=== PATIENT | female | born 1990 | race Caucasian/White ===

== ENCOUNTER 2020-06-12 08:29 | Day surgery (SDC) | payer BC ==
[~2020-06-12 08:29] MED LIST: Lactated Ringers 1,000 ML IV SCH; Lidocaine 2% 5 ML SDV ONE; Midazolam 1 MG/ML 2 ML SDV ONE; Propofol 200 MG/20 ML SDV ONE; Sodium Chloride 0.9% 10 ML SDV IV PRN; Sodium Chloride 0.9% 10 ML Syringe FLUSH PRN; Sodium Chloride 0.9% 2.5 ML Syringe FLUSH PRN; fentaNYL 100 MCG/2 ML SDV ONE
--- NOTE | 2020-06-12 09:14 | PCM.PREANE ---
Preanesthetic Assessment - Anesthesia/Transfusion/Family Hx Anesthesia History: Prior Anesthesia Without Reaction Family History of Anesthesia Reaction: No Transfusion History: No Prior Transfusion(s) - Review of Systems General: No Symptoms Pulmonary: No Symptoms Cardiovascular: No Symptoms Gastrointestinal: No Symptoms Neurological: No Symptoms Other: Reports: None - Physical Assessment NPO Status Date: 06/12/20 NPO Status Time: 00:01 Vital Signs: Last Vital Signs Temp 97.3 F 06/12/20 09:00 Pulse 65 06/12/20 09:00 Resp 16 06/12/20 09:00 BP 122/77 06/12/20 09:00 Pulse Ox 97 06/12/20 09:00 Height: 5 ft 1 in Weight: 155 lb ASA Class: 2 Mental Status: Alert & Oriented x3 Airway Class: Mallampati = 2 Dentition: Reports: Normal Dentition ROM/Head Extension: Full Lungs: Clear to Auscultation, Normal Respiratory Effort Cardiovascular: Regular Rate, Regular Rhythm - Lab Values: Laboratory Last Values Urine HCG, Qual NEGATIVE (NEGATIVE) 06/12/20 08:42 - Allergies Allergies/Adverse Reactions: Allergies Allergy/AdvReac Type Severity Reaction Status Date / Time amoxicillin Allergy thrush Verified 06/12/20 08:55 - Anesthesia Plan Pre-Op Medication Ordered: None - Acknowledgements Anesthesia Type Planned: General Anesthesia Pt an Appropriate Candidate for the Planned Anesthesia: Yes Alternatives and Risks of Anesthesia Discussed w Pt/Guardian: Yes Pt/Guardian Understands and Agrees with Anesthesia Plan: Yes Additional Comments: npo hayfever depression no cv problems par no questions PreAnesthesia Questionnaire HEENT History: Reports: Other (See Below) Other HEENT History: hx fx jaw Cardiovascular History: Reports: None Respiratory History: Reports: None Gastrointestinal History: Reports: Irritable Bowel Syndrome, Other (See Below) Other Gastrointestinal History: intermittent abd pain Genitourinary History: Reports: None Musculoskeletal History: Reports: Fracture Other Musculoskeletal History: hx fx tailbone & fx jaw Neurological History: Reports: None Psychiatric History: Reports: Anxiety, Depression Endocrine/Metabolic History: Reports: None Hematologic History: Reports: None Immunologic History: Reports: None Oncologic (Cancer) History: Reports: None Dermatologic History: Reports: None - Past Surgical History Head Surgeries/Procedures: Reports: None HEENT Surgical History: Reports: Oral Surgery Other HEENT Surgeries/Procedures: wisdom teeth extraction Cardiovascular Surgical History: Reports: None Respiratory Surgical History: Reports: None GI Surgical History: Reports: None Female Surgical History: Reports: None Endocrine Surgical History: Reports: None Neurological Surgical History: Reports: None Musculoskeletal Surgical History: Reports: None Oncologic Surgical History: Reports: None Dermatological Surgical History: Reports: None - SUBSTANCE USE Tobacco Use Status *Q: Current Every Day Tobacco User Tobacco Use Within Last Twelve Months: Cigarettes - HOME MEDS Home Medications: Home Meds Acetaminophen [Tylenol Extra Strength] 1 - 2 tab PO ASDIRECTED PRN 06/06/20 [History] Cetirizine HCl/Pseudoephedrine [ZyrTEC-D] 1 tab PO ASDIRECTED PRN 06/06/20 [History] Ibuprofen 2 tab PO ASDIRECTED PRN 06/06/20 [History] Levonorgestrel/Ethin.estradiol [Falmina-28 Tablet] 1 tab PO DAILY 06/06/20 [History] Multivitamin 1 tab PO DAILY 06/06/20 [History] Sertraline HCl 25 mg PO DAILY 06/06/20 [History] - CURRENT (IN HOUSE) MEDS Current Meds: Current Medications Lactated Ringer's (Ringers, Lactated) 1,000 mls @ 125 mls/hr IV ASDIRECTED NIKKI Last Admin: 06/12/20 08:54 Dose: 125 mls/hr Documented by: Sodium Chloride (Sodium Chloride 0.9% 10 Ml Syringe) 10 ml FLUSH ASDIRECTED PRN PRN Reason: Keep Vein Open Sodium Chloride (Sodium Chloride 0.9% 2.5 Ml Syringe) 2.5 ml FLUSH ASDIRECTED PRN PRN Reason: Keep Vein Open Sodium Chloride (Sodium Chloride 0.9% 10 Ml Syringe) 10 ml FLUSH ASDIRECTED PRN PRN Reason: Keep Vein Open Sodium Chloride (Sodium Chloride 0.9% 2.5 Ml Syringe) 2.5 ml FLUSH ASDIRECTED PRN PRN Reason: Keep Vein Open Sodium Chloride (Sodium Chloride 0.9% 10 Ml Sdv) 10 ml IV ASDIRECTED PRN PRN Reason: IV Use Discontinued Medications Fentanyl (Fentanyl 100 Mcg/2 Ml Sdv) Confirm Administered Dose 100 mcg .ROUTE .STK-MED ONE Stop: 06/12/20 06:57 Lidocaine (Lidocaine 2% 5 Ml Sdv) Confirm Administered Dose 5 ml .ROUTE .STK-MED ONE Stop: 06/12/20 06:58 Midazolam HCl (Midazolam 1 Mg/Ml 2 Ml Sdv) Confirm Administered Dose 2 mg .ROUTE .STK-MED ONE Stop: 06/12/20 06:57 Propofol (Propofol 200 Mg/20 Ml Sdv) Confirm Administered Dose 400 mg .ROUTE .S TK-MED ONE Stop: 06/12/20 06:57
--- NOTE | 2020-06-12 10:11 | PCM.OPNOTE ---
- General Post-Op/Procedure Note Date of Surgery/Procedure: 06/12/20 Operative Procedure(s): Diagnostic EGD and colonoscopy Findings: Normal appearing EGD and colonoscopy. Pre Op Diagnosis: Abdominal pain Post-Op Diagnosis: Abdominal pain, biliary dyskinesia Anesthesia Technique: ELIZABETH Primary Surgeon: Skyla Rain Condition: Good
--- NOTE | 2020-06-12 10:25 | PCM.POSTAN ---
POST ANESTHESIA ASSESSMENT - MENTAL STATUS Mental Status: Alert (no anesthetic problems), Oriented - VITAL SIGNS Vital Signs: Last Vital Signs Temp 97.3 F 06/12/20 09:00 Pulse 62 06/12/20 10:19 Resp 13 06/12/20 10:19 BP 110/70 06/12/20 10:19 Pulse Ox 99 06/12/20 10:19 - RESPIRATORY Respiratory Status: Respiratory Rate WNL, Airway Patent, O2 Saturation Stable - CARDIOVASCULAR CV Status: Pulse Rate WNL, Blood Pressure Stable - GASTROINTESTINAL GI Status: No Symptoms - POST OP HYDRATION Hydration Status: Adequate & Stable
--- NOTE | 2020-06-12 10:44 | PCM48HPAN ---
Post Anesthesia Note - EVALUATION WITHIN 48HRS OF ANESTHETIC Vital Signs in Normal Range: Yes Patient Participated in Evaluation: Yes Respiratory Function Stable: Yes Airway Patent: Yes Cardiovascular Function Stable: Yes Hydration Status Stable: Yes Pain Control Satisfactory: Yes Nausea and Vomiting Control Satisfactory: Yes Mental Status Recovered: Yes Vital Signs: Last Vital Signs Temp 36.3 C 06/12/20 09:00 Pulse 62 06/12/20 10:19 Resp 13 06/12/20 10:19 BP 110/70 06/12/20 10:19 Pulse Ox 99 06/12/20 10:19
--- NOTE | 2020-06-12 11:04 | PCM48HPAN ---
Post Anesthesia Note - EVALUATION WITHIN 48HRS OF ANESTHETIC Vital Signs in Normal Range: Yes Patient Participated in Evaluation: Yes Respiratory Function Stable: Yes Airway Patent: Yes Cardiovascular Function Stable: Yes Hydration Status Stable: Yes Pain Control Satisfactory: Yes Nausea and Vomiting Control Satisfactory: Yes Mental Status Recovered: Yes Vital Signs: Last Vital Signs Temp 97.3 F 06/12/20 09:00 Pulse 62 06/12/20 10:19 Resp 13 06/12/20 10:19 BP 110/70 06/12/20 10:19 Pulse Ox 99 06/12/20 10:19
--- NOTE | 2020-06-13 19:05 | OR ---
SURGEON: SKYLA RAIN MD DATE OF PROCEDURE: 06/12/2020 PREOPERATIVE DIAGNOSIS: Generalized abdominal pain. POSTOPERATIVE DIAGNOSES: 1. Abdominal pain. 2. Biliary dyskinesia. PROCEDURE PERFORMED: Diagnostic esophagogastroduodenoscopy and colonoscopy. PRIMARY SURGEON: Skyla Rain MD ANESTHESIA: MAC. INSTRUMENT USED: Olympus endoscope and colonoscope. EXTENT OF EXAM: To the second portion of duodenum, to the cecum. PREPARATION: Good. LIMITATIONS: None. INDICATIONS FOR EXAMINATION: The patient is a 29-year-old female who presented with abdominal pain. She had a HIDA test performed, which showed decreased ejection fraction of the gallbladder; however, it did not reproduce all of her symptoms. The decision was made to proceed with diagnostic EGD and colonoscopy to rule out a GI source for pain prior to performing a cholecystectomy. The patient and I discussed the procedures, expected perioperative course, and risks. She verbalized understanding and wishes to proceed. PROCEDURE IN DETAIL: The patient was brought into the endoscopy suite and placed in the left lateral decubitus position. A time-out was completed verifying the patient's name, age, date of , allergies, and procedure to be performed. Monitored anesthesia care was induced and continuous oxygen was provided via nasal cannula throughout the procedure. A bite block was placed in the patient's mouth. After adequate sedation was achieved, a well-lubricated endoscope was placed in the patient's mouth and advanced under direct visualization to the second portion of duodenum. This appeared normal, and a photograph was taken. The scope was then fully withdrawn while examining the color, texture, anatomy, and integrity of the mucosa of the upper GI tract. The duodenum, stomach, and esophagus all appeared normal. There was no evidence of gross inflammation or ulceration. Everything appeared anatomically normal. A photograph was taken of the second portion of duodenum, of the pylorus, and of the GE junction both with the scope retroflexed within the stomach as well as with the scope in the distal esophagus. Biopsies were taken of the gastric antrum, body, and fundus and sent for histologic review and H. pylori testing. Biopsies were also taken in the first portion of duodenum as well as in the distal esophagus 1 cm above the Z-line and sent to Pathology for histologic review. The scope was removed, and this portion of procedure terminated. A digital rectal exam was performed. This exam was within normal limits. A well-lubricated colonoscope was inserted in the rectum and advanced under direct visualization to the cecum. The cecum was identified by both visual and anatomic landmarks. A photograph taken of the cecal cap as well as with the scope retroflexed within the cecum. The scope was then fully withdrawn while examining the color, texture, anatomy, and integrity of the mucosa from the cecum to the anal canal. The terminal ileum appeared normal. There was no evidence of any gross ulceration or inflammation throughout the colon. No other pathology was identified. Biopsies were taken of the cecum, ascending colon, transverse colon, descending colon, sigmoid colon, and rectum and sent to Pathology for histologic review. The scope was retroflexed within the rectum to allow visualization of the anal canal opening. This appeared normal, and a photograph was taken. The scope was then straightened out and fully withdrawn. Cecum to anus time was 7 minutes. The patient tolerated the procedure well and transferred to the PACU in stable condition. ENDOSCOPIC DIAGNOSIS: Abdominal pain, most likely due to biliary dyskinesia. RECOMMENDATIONS: The patient and I have visited in clinic the day before. I will follow up on the results of the biopsies from today's exams. If these are normal or show very minimal change then likely her pain is due to biliary dyskinesia, and we will schedule her for a laparoscopic, possible open cholecystectomy. REBKEAH JEFFERS /[id number]
== END 2020-06-12 10:52 | disposition home or self-care (01) ==
LOC: MW.SDS 08:29
PROVIDERS: ATTEND Surgery
DX: R10.84 Generalized abdominal pain (principal); R19.4 Change in bowel habit; K31.89 Other diseases of stomach and duodenum; K22.8 Other specified diseases of esophagus; K63.89 Other specified diseases of intestine; F17.210 Nicotine dependence, cigarettes, uncomplicated; Z79.899 Other long term (current) drug therapy; Z88.1 Allergy status to other antibiotic agents
CPT/HCPCS: 43239; 45380; 81025; 88305; 88312; J2250; J2704; J3010; J7120; 00813

== ENCOUNTER 2020-06-26 10:52 | Day surgery (SDC) | payer BC ==
[~2020-06-26 10:52] MED LIST changes: +Bupivacaine 0.5% 30 ML SDV ONE; +Dexamethasone 4 MG/ML 5 ML MDV ONE; +HYDROmorphone 2 MG/ML Syringe ONE; +Ketamine 500 mg/10 ML MDV ONE; +Ketorolac 30 MG/ML SDV ONE; +Octyl 2-Cyanoacrylate 1 Tube ONE; +Ondansetron 4 MG/2 ML SDV ONE; -Propofol 200 MG/20 ML SDV ONE; +Rocuronium Bromide 50 MG/5 ML Syringe ONE; +Sugammadex Sodium 200 MG/2 ML VIAL ONE; +ceFAZolin 2 GM in Premix Bag 1 BAG IV ONE; +propofoL 100 ML ONE
--- NOTE | 2020-06-26 11:21 | PCM.PREANE ---
Preanesthetic Assessment - Anesthesia/Transfusion/Family Hx Anesthesia History: Prior Anesthesia Without Reaction Family History of Anesthesia Reaction: No Transfusion History: No Prior Transfusion(s) - Review of Systems General: No Symptoms Pulmonary: No Symptoms Cardiovascular: No Symptoms Gastrointestinal: No Symptoms Neurological: No Symptoms Other: Reports: None - Physical Assessment NPO Status Date: 06/26/20 NPO Status Time: 00:01 Height: 5 ft 1 in Weight: 155 lb ASA Class: 2 Mental Status: Alert & Oriented x3 Airway Class: Mallampati = 2 Dentition: Reports: Normal Dentition ROM/Head Extension: Full Lungs: Clear to Auscultation, Normal Respiratory Effort Cardiovascular: Regular Rate, Regular Rhythm - Allergies Allergies/Adverse Reactions: Allergies Allergy/AdvReac Type Severity Reaction Status Date / Time amoxicillin Allergy thrush Verified 06/20/20 09:02 - Acknowledgements Anesthesia Type Planned: General Anesthesia Pt an Appropriate Candidate for the Planned Anesthesia: Yes Alternatives and Risks of Anesthesia Discussed w Pt/Guardian: Yes Pt/Guardian Understands and Agrees with Anesthesia Plan: Yes Additional Comments: npo after mn hayfever depression anxiety headaches tob 1/2 ppd etoh occ par no questions PreAnesthesia Questionnaire HEENT History: Reports: Other (See Below) Other HEENT History: hx fx jaw Cardiovascular History: Reports: None Respiratory History: Reports: None Gastrointestinal History: Reports: Irritable Bowel Syndrome, Other (See Below) Other Gastrointestinal History: intermittent abd pain Genitourinary History: Reports: None Musculoskeletal History: Reports: Fracture Other Musculoskeletal History: hx fx tailbone & fx jaw Neurological History: Reports: None Psychiatric History: Reports: Anxiety, Depression Endocrine/Metabolic History: Reports: None Hematologic History: Reports: None Immunologic History: Reports: None Oncologic (Cancer) History: Reports: None Dermatologic History: Reports: None - Past Surgical History Head Surgeries/Procedures: Reports: None HEENT Surgical History: Reports: Oral Surgery Other HEENT Surgeries/Procedures: wisdom teeth extraction Cardiovascular Surgical History: Reports: None Respiratory Surgical History: Reports: None GI Surgical History: Reports: Colonoscopy, EGD Female Surgical History: Reports: None Endocrine Surgical History: Reports: None Neurological Surgical History: Reports: None Musculoskeletal Surgical History: Reports: None Oncologic Surgical History: Reports: None Dermatological Surgical History: Reports: None - SUBSTANCE USE Tobacco Use Status *Q: Current Every Day Tobacco User Tobacco Use Within Last Twelve Months: Cigarettes - HOME MEDS Home Medications: Home Meds Acetaminophen [Tylenol Extra Strength] 1 - 2 tab PO ASDIRECTED PRN 06/06/20 [History] Cetirizine HCl/Pseudoephedrine [ZyrTEC-D] 1 tab PO ASDIRECTED PRN 06/06/20 [History] Ibuprofen 2 tab PO ASDIRECTED PRN 06/06/20 [History] Levonorgestrel/Ethin.estradiol [Falmina-28 Tablet] 1 tab PO DAILY 06/06/20 [Hist ory] Multivitamin 1 tab PO DAILY 06/06/20 [History] Sertraline HCl 25 mg PO DAILY 06/06/20 [History] - CURRENT (IN HOUSE) MEDS Current Meds: Current Medications Lactated Ringer's (Ringers, Lactated) 1,000 mls @ 125 mls/hr IV ASDIRECTED NIKKI Sodium Chloride (Sodium Chloride 0.9% 2.5 Ml Syringe) 2.5 ml FLUSH ASDIRECTED PRN PRN Reason: Keep Vein Open Sodium Chloride (Sodium Chloride 0.9% 10 Ml Sdv) 10 ml IV ASDIRECTED PRN PRN Reason: IV Use Sodium Chloride (Sodium Chloride 0.9% 10 Ml Syringe) 10 ml FLUSH ASDIRECTED PRN PRN Reason: Keep Vein Open Discontinued Medications Bupivacaine HCl (Bupivacaine 0.5% 30 Ml Sdv) Confirm Administered Dose 30 ml .ROUTE .STK-MED ONE Stop: 06/26/20 08:02 Dexamethasone (Dexamethasone 4 Mg/Ml 5 Ml Mdv) Confirm Administered Dose 20 mg .ROUTE .STK-MED ONE Stop: 06/26/20 07:46 Fentanyl (Fentanyl 100 Mcg/2 Ml Sdv) Confirm Administered Dose 100 mcg .ROUTE .STK-MED ONE Stop: 06/26/20 07:53 Hydromorphone HCl (Hydromorphone 2 Mg/Ml Syringe) Confirm Administered Dose 2 mg .ROUTE .STK-MED ONE Stop: 06/26/20 07:53 Cefazolin Sodium/Dextrose 2 gm (/ Premix) 50 mls @ 100 mls/hr IV ONETIME ONE Stop: 06/23/20 11:31 Propofol (Diprivan 100 Ml) Confirm Administered Dose 100 mls @ as directed .ROUTE .STK-MED ONE Stop: 06/26/20 07:53 Ketamine HCl (Ketamine 500 Mg/10 Ml Mdv) Confirm Administered Dose 500 mg .ROUTE .[employer]-MED ONE Stop: 06/26/20 07:53 Ketorolac Tromethamine (Ketorolac 30 Mg/Ml Sdv) Confirm Administered Dose 30 mg .ROUTE .[employer]-MED ONE Stop: 06/26/20 07:46 Lidocaine (Lidocaine 2% 5 Ml Sdv) Confirm Administered Dose 5 ml .ROUTE .[employer] Media[employer] ONE Stop: 06/26/20 07:46 Midazolam HCl (Midazolam 1 Mg/Ml 2 Ml Sdv) Confirm Administered Dose 2 mg .ROUTE .Clique MediaMED ONE Stop: 06/26/20 07:53 Octyl Cyanoacrylate (Octyl 2-Cyanoacrylate 1 Tube) Confirm Administered Dose 1 applic .ROUTE .[employer] ONE Stop: 06/26/20 08:02 Ondansetron HCl (Ondansetron 4 Mg/2 Ml Sdv) Confirm Administered Dose 4 mg .ROUTE .[employer] ONE Stop: 06/26/20 07:46 Rocuronium Warren (Rocuronium Warren 50 Mg/5 Ml Syringe) Confirm Administered Dose 50 mg .ROUTE .Clique MediaMED ONE Stop: 06/26/20 07:46 Sugammadex Sodium (Sugammadex Sodium 200 Mg/2 Ml Vial) Confirm Administered Dose 200 mg .ROUTE .Clique MediaMED ONE Stop: 06/26/20 07:46
[2020-06-26] MEDS ORDERED: Famotidine 20 MG/2 ML SDV ONE (12:07)
[2020-06-26] MEDS ORDERED: Acetaminophen 1,000 MG in Premix Bag 1 BAG IV PRN (12:37)
[2020-06-26] MEDS ORDERED: HYDROmorphone 2 MG/ML Syringe IVPUSH PRN (12:37)
[2020-06-26] MEDS ORDERED: fentaNYL 100 MCG/2 ML SDV IVPUSH PRN (12:37)
[2020-06-26] MEDS ORDERED: Morphine 10 MG/ML Syringe IVPUSH PRN (12:37)
[2020-06-26] MEDS ORDERED: Metoclopramide 10 MG/2 ML SDV IVPUSH PRN (12:37)
[2020-06-26] MEDS ORDERED: Ondansetron 4 MG/2 ML SDV IVPUSH PRN (12:37)
[2020-06-26] MEDS ORDERED: Naloxone 0.4 MG/ML Syringe IVPUSH PRN (12:37)
[2020-06-26] MEDS ORDERED: Albuterol 0.083% 2.5 MG/3 ML Neb Soln NEB PRN (12:37)
[2020-06-26] MEDS ORDERED: Alum Hydrox/Mag Hydrox/Simeth 15 ML, Lidocaine 2% 5 ML PO ONE ×2 (13:21)
--- NOTE | 2020-06-26 13:28 | PCM.OPNOTE ---
- General Post-Op/Procedure Note Date of Surgery/Procedure: 06/26/20 Operative Procedure(s): Laparoscopic cholecystectomy Findings: Adhesions to surrounding omentum to gallbladder wall Pre Op Diagnosis: Biliary dyskinesia Post-Op Diagnosis: same Anesthesia Technique: MAC Primary Surgeon: Skyla Rain Fluid Replacement, Intraop: 900 Output, Urine Amount: 30 EBL in mLs: 5 Condition: Good Free Text/Narrative:: Intake & Output 06/25/20 06/26/20 06/26/20 22:59 06:59 14:59 Output Total 50 Balance -50
--- NOTE | 2020-06-26 13:39 | PCM.POSTAN ---
POST ANESTHESIA ASSESSMENT - MENTAL STATUS Mental Status: Alert (no anesthetic problems), Oriented - VITAL SIGNS Vital Signs: Last Vital Signs Temp 97.0 F 06/26/20 13:03 Pulse 67 06/26/20 13:34 Resp 19 06/26/20 13:34 BP 115/72 06/26/20 13:34 Pulse Ox 97 06/26/20 13:34 - RESPIRATORY Respiratory Status: Respiratory Rate WNL, Airway Patent, O2 Saturation Stable - CARDIOVASCULAR CV Status: Pulse Rate WNL, Blood Pressure Stable - GASTROINTESTINAL GI Status: No Symptoms - POST OP HYDRATION Hydration Status: Adequate & Stable
--- NOTE | 2020-06-26 14:23 | PCM48HPAN ---
Post Anesthesia Note - EVALUATION WITHIN 48HRS OF ANESTHETIC Vital Signs in Normal Range: Yes Patient Participated in Evaluation: Yes Respiratory Function Stable: Yes Airway Patent: Yes Cardiovascular Function Stable: Yes Hydration Status Stable: Yes Pain Control Satisfactory: Yes Nausea and Vomiting Control Satisfactory: Yes Mental Status Recovered: Yes Vital Signs: Last Vital Signs Temp 97.2 F 06/26/20 13:40 Pulse 72 06/26/20 14:10 Resp 16 06/26/20 14:10 BP 100/61 06/26/20 14:10 Pulse Ox 98 06/26/20 14:10
--- NOTE | 2020-06-27 16:06 | OR ---
SURGEON: SKYLA RAIN MD DATE OF PROCEDURE: 06/26/2020 PREOPERATIVE DIAGNOSIS: Biliary dyskinesia. POSTOPERATIVE DIAGNOSIS: Biliary dyskinesia. PROCEDURE PERFORMED: Laparoscopic cholecystectomy. PRIMARY SURGEON: Skyla Rain MD ANESTHESIA: General endotracheal anesthesia. FLUIDS: 900 mL crystalloid. ESTIMATED BLOOD LOSS: 5 mL. URINE OUTPUT: 30 mL. FINDINGS: Gallbladder with adhesions to the surrounding omentum. COMPLICATIONS: None. INDICATIONS: The patient is a 29-year-old female who presented to my clinic with vague abdominal pains. A HIDA scan showed an ejection fraction of 19%. The patient underwent a diagnostic EGD and colonoscopy which were grossly normal. The decision was made to proceed with a laparoscopic, possible open cholecystectomy for biliary dyskinesia. I explained the procedure, expected perioperative course, and the risks. She verbalized understanding and wishes to proceed. PROCEDURE IN DETAIL: The patient was brought in to the OR and placed on the OR table in supine position. A time-out was completed verifying the patient's name, age, date of , allergies, and procedure to be performed. General endotracheal anesthesia was induced. The left arm was tucked at the patient's side and a Carrion catheter placed. The abdomen was prepped and draped in usual standard fashion. I anesthetized the infraumbilical fold with 0.5% Marcaine plain. An 11-blade was used to make an incision along this fold. Cautery was used to dissect down to the subcutaneous fat layer. I bluntly dissected down to the fascia. The fascia was elevated with Kochers and incised sharply with curved Mosquera scissors. The peritoneum was grasped with hemostats and incised sharply as well. Entry into the abdomen was palpated digitally. A 12 mm Charbel trocar was placed through this fascial defect into the abdomen. The abdomen was insufflated. A 5 mm 30-degree scope was inserted. I inspected the area underneath my initial trocar placement. No damage to surrounding structures was noted. The patient was placed into reverse Trendelenburg position and airplaned slightly to the left. 5 mm trocars were placed in the following locations under direct visualization; one in the epigastric area, one in the right flank, and one 2 fingerbreadths below the left subcostal margin in the midclavicular line. The dome of the gallbladder was grasped and elevated. There were adhesions along the omentum to the body of the gallbladder. Using a combination of blunt dissection and hook cautery, this was taken down safely. The gallbladder was elevated further to allow inspection of the infundibulum. The infundibulum was grasped with an atraumatic grasper and using hook cautery and blunt dissection, I cleared away the attachments around the cystic duct and artery. I then began my dissection 1/[address] up the cystic plate. During my dissection, I identified the node of Calot. Once my critical view was achieved, I doubly clipped and ligated the cystic duct and artery. I continued my dissection up the cystic plate. There was a small vascular structure inserting onto the gallbladder about 1/[address] up the cystic plate. This was doubly clipped and ligated. Once the gallbladder was almost off the cystic plate, a photograph was taken. This showed that there was no biliary leakage and that the operative field was hemostatic. The remaining attachments were taken down and the gallbladder was placed in an EndoCatch bag which was removed through the infraumbilical port site. I irrigated my operative field with a small amount of normal saline which was suctioned out. I then reinspected my operative field and there was good hemostasis with no evidence of bile leakage. My 5 mm trocars were removed under direct visualization, and the abdomen allowed to desufflate. The 12 mm trocar was removed as well. The fascia at the infraumbilical port site was closed with interrupted 0 Vicryl sutures. The subcutaneous fat layer was closed with interrupted 3-0 Vicryl sutures. The skin was closed with a running 4-0 Monocryl stitch. The 5 mm trocar sites were closed with interrupted 4-0 Monocryl sutures. Dermabond and sterile dressings were applied. The patient tolerated the procedure well and was transferred to the PACU in stable condition. All counts were complete and correct at the end of the case. REBEKAH / AURY /[id number]
== END 2020-06-26 14:45 | disposition home or self-care (01) ==
LOC: MW.SDS 10:52
PROVIDERS: ATTEND Surgery
DX: K81.1 Chronic cholecystitis (principal); K82.8 Other specified diseases of gallbladder; F17.210 Nicotine dependence, cigarettes, uncomplicated; Z88.1 Allergy status to other antibiotic agents; Z79.899 Other long term (current) drug therapy
CPT/HCPCS: 47562; 81025; 88304; A9270; J0690; J1100; J1885; J2250; J2704; J2765; J3490; J7120; 00790; J1170; J2405; J3010